=== PATIENT | male | born 1955 | race Caucasian/White ===

== ENCOUNTER 2024-07-14 07:20 | Day surgery (SDC) | payer MEDICARE, SELFPAY ==
[2024-07-14] VITALS (13 sets, daily range): BP systolic 91–143; BP diastolic 65–81; PULSE 50–64; RESP 12–17; TEMP 36.2–37; O2SAT 97–99; BMI 24.7
[2024-07-14] MEDS: LACTATED RINGERS 1000 ML 1,000 ML 100 ML IV (07:30)
[2024-07-14] MEDS: CEFAZOLIN 2 GM INJ IVP (08:30)
[2024-07-14] MEDS: BUPIVACAINE 0.5% 30 ML INJECTION (08:58)
--- NOTE | 2024-07-14 09:07 | PM.GSPRC ---
Operative Note Date of procedure: 07/14/24 Pre-op diagnosis: Epigastric hernia with incarcerated preperitoneal fat Post-op diagnosis: Same Type of Procedure: Open epigastric hernia repair Indications: Patient is a 69-year-old male who presented to clinic with a symptomatic epigastric hernia. Different treatment options were reviewed, please see consultation note for full discussion. Risks and benefits of operative intervention were discussed at length with the patient. Risks included but was not limited to: Bleeding, infection, risk of damage to surrounding structures, possible need for additional procedures, risk of recurrence and postoperative complications such as pneumonia, pulmonary emboli or [place]. All questions and concerns were addressed with the patient agreeing to proceed. Procedure Description: After discussing the risks and benefits of the procedure, the patient signed informed consent.? The operative site was marked and the patient was brought to the operating room and placed on the operating table in supine position.? Care was taken to pad the patient's pressure points.?? The patient was then intubated by anesthesia.?? The operative site was then prepped and draped in the usual sterile fashion.? A time-out was then performed. A vertical incision was made supraumbilical in the midline. Dissection was carried down into the subcutaneous tissue using cautery. The hernia sac was encountered and dissected circumferentially down to the fascia. The incarcerated preperitoneal fat was unable to be completely reduced. A portion of the hernia sac was ligated and passed off the back table for disposal. The remainder of the fat was then able to easily reduced. The hernia was 1 cm in size and so the decision was made for primary repair. Using several interrupted 0 Nurolon sutures a [id number] approach was used to close the fascial defect. Local anesthetic was injected into the fascia, skin and subcutaneous tissues. The skin was then closed with running absorbable suture. A sterile dressing was then applied. ? The patient was then woken and transported to the recovery area in stable condition. ? The patient tolerated the procedure well. Findings: Epigastric hernia with incarcerated preperitoneal fat Anesthesia: GETA and local Surgeon: Nevaeh Deutsch MD Estimated blood loss (mL): 5 Condition: stable Disposition: PACU
--- NOTE | 2024-07-14 09:12 | W.PM.H&PU ---
History & Physical Update History & Physical Update H&P Reviewed and patient assessed: No changes noted
--- NOTE | 2024-07-14 09:16 | W.ANESCHARGE ---
Anesthesia Charges Start Date/Time Anesthesia Start Date: 07/14/24 Anesthesia Start Time: 08:16 Stop Date/Time Anesthesia Stop Date: 07/14/24 Anesthesia Stop Time: 09:15 Summary Extremes of Age - Over 70 or under 1: RESIDENTIAL DIRECT SUPPORT PROFESSIONAL Coding CPT Codes CPT Codes: ANESTH REPAIR OF HERNIA - 74123 ([id number]) P1 - NORMAL HEALTHY PATIENT, QX - RESIDENTIAL DIRECT SUPPORT PROFESSIONAL SVKate W/ MED DIRECTION, QK - FINANCIAL SERVICES COUNSELOR 2-4 CNCRNT ANES PROC Additional Codes: Summary - Extremes of Age - Over 70 or under 1: RESIDENTIAL DIRECT SUPPORT PROFESSIONAL ([id number])
--- NOTE | 2024-07-14 09:26 | W.ANESCHARGE ---
Anesthesia Charges Start Date/Time Anesthesia Start Date: 07/14/24 Anesthesia Start Time: 08:16 Stop Date/Time Anesthesia Stop Date: 07/14/24 Anesthesia Stop Time: 09:15 Summary Extremes of Age - Over 70 or under 1: MDA Coding CPT Codes CPT Codes: ANESTH REPAIR OF HERNIA - 48919 ([id number]) QK - CASTER HELPER 2-4 CNCRNT ANES PROC, QX - BOTTLING LINE OPERATOR SVC W/ MD MED DIRECTION, P1 - NORMAL HEALTHY PATIENT Additional Codes: Summary - Extremes of Age - Over 70 or under 1: MDA ([id number])
--- NOTE | 2024-07-14 09:50 | SUR.PHASEI ---
patient met discharge criteria per anesthesia
== END 2024-07-14 11:20 | disposition home or self-care (01) ==
PROVIDERS: PCP Family Medicine; Visit Provider Surgery
PROC: (CPT 49592; principal; 2024-07-14 08:30)
DX: K43.6 Other and unspecified ventral hernia with obstruction, without gangrene (principal)
CPT/HCPCS: 49592; 00750; 00790; 99100; J0330; J0665; J0690; J1100; J2250; J2405; J2704; J3010; J3490; J7120